=== PATIENT | female | born 1965 ===

== ENCOUNTER 2017-01-06 20:43 | Emergency (ER) | payer MEDICAID, OTHER ==
[2017-01-06] MEDS ORDERED: KETOROLAC TROMETHAMINE 60 MG/2 ML VIAL ONE (21:23)
[2017-01-06] MEDS ORDERED: TRAMADOL HCL 50 MG TABLET ONE (21:23)
== END 2017-01-06 21:52 | disposition home or self-care (01) ==
LOC: ED 20:43
DX: R51 Headache (principal); J34.89 Other specified disorders of nose and nasal sinuses; E10.65 Type 1 diabetes mellitus with hyperglycemia; I10 Essential (primary) hypertension; Z79.4 Long term (current) use of insulin; Z79.84 Long term (current) use of oral hypoglycemic drugs
CPT/HCPCS: 99283 ×2; 96372; J1885; A9270